=== PATIENT | female | born 1940 | race African-American/Black ===

== ENCOUNTER 2021-07-03 16:37 | Emergency (ER) | payer BC, MEDICAID ==
[~2021-07-03] VITALS: Ht 167.6 cm; Wt 52.0 kg
[2021-07-03 17:21] LABS: MEAN CORPUSCULAR HEMOGLOBIN 37.6 pg (28.0-32.0); MEAN CORPUSCULAR VOLUME 123.4 fL (81.0-99.0); MEAN PLATELET VOLUME 8.8 fl (7.4-10.4); PLATELET 75 x1000/uL (130-400); RED BLOOD CELL COUNT 0.82 mill/uL (4.2-5.4); RED CELL DISTRIBUTION WIDTH 23.3 % (11.6-14.6)
[2021-07-03 17:28] LABS: CHLORIDE 107 mEq/L (98-107)
[2021-07-03 17:41] LABS: HEMATOCRIT. 10.1 % (36.0-48.0); HEMOGLOBIN. 3.1 g/dL (12.0-16.0)
[2021-07-03] MEDS ORDERED: PIPERACILLIN/TAZ 3.375G PREMIX 50 ML IV NR (17:45)
[2021-07-03] MEDS ORDERED: PIPERACILLIN/TAZOBACTAM 3.375GM/50ML PREMIX IV ONE (17:45)
[2021-07-03 18:18] LABS: HEMOGLOBIN 3.2 g/dL (12.0-16.0)
[2021-07-03 18:19] LABS: HEMATOCRIT 10.7 % (36.0-48.0)
[2021-07-03] MEDS ORDERED: FUROSEMIDE 20MG/2ML VIAL IVP NR (18:30)
[2021-07-03] MEDS ORDERED: ALBUMIN HUMAN 12.5G/250ML (5%) IV NR ×2 (19:00→20:30)
[2021-07-03] MEDS ORDERED: HETASTARCH/NORMAL SALINE 500 ML PLAST..BAG IV ONE (19:00)
[2021-07-03 20:15] VITALS: BP 73/27
[2021-07-03] MEDS ORDERED: SODIUM CHLORIDE 0.9% 500 ML IV ONE (20:45)
[2021-07-03 20:54] LABS: NUCLEATED RED BLOOD CELLS 4 /100 WBC
[2021-07-03 20:55] LABS: PLATELET ESTIMATE DECREASED
== END 2021-07-03 21:02 ==
LOC: ER 16:37 → CANBEDREQ 07-04 06:52
DX: I46.9 Cardiac arrest, cause unspecified (principal); C92.00 Acute myeloblastic leukemia, not having achieved remission; J96.90 Respiratory failure, unspecified, unspecified whether with hypoxia or hypercapnia; G93.41 Metabolic encephalopathy; J44.9 Chronic obstructive pulmonary disease, unspecified; I10 Essential (primary) hypertension
CPT/HCPCS: 36415; 71045; 80053; 83880; 84484; 85014; 85018; 85025; 86850; 86900; 86901; 86920; 87040; 96365; 96375; 99291; J1940; J2543; J7040; P9041